=== PATIENT | female | born 1995 | race African-American/Black ===

== ENCOUNTER 2024-01-21 10:00 | Outpatient (RCR) | payer OTHER | END 2024-01-28 | LOC: PT 10:00 | PROVIDERS: ATTEND Orthopaedic Surgery | DX: M25.562 Pain in left knee (principal); M25.662 Stiffness of left knee, not elsewhere classified; M62.81 Muscle weakness (generalized); M26.89 Other dentofacial anomalies | CPT/HCPCS: 97010; 97110 ×5; 97161; G0283 ×3 ==

== ENCOUNTER 2024-03-02 08:27 | Outpatient (RCR) | payer OTHER | END 2024-03-29 | LOC: PT 08:27 | PROVIDERS: ATTEND Orthopaedic Surgery | DX: Z47.89 Encounter for other orthopedic aftercare (principal); M25.562 Pain in left knee; M25.662 Stiffness of left knee, not elsewhere classified; M62.81 Muscle weakness (generalized) ==

== ENCOUNTER 2024-04-01 09:00 | Outpatient (RCR) | payer OTHER | END 2024-04-29 | LOC: PT 09:00 | PROVIDERS: ATTEND Orthopaedic Surgery | DX: M25.562 Pain in left knee (principal); M25.662 Stiffness of left knee, not elsewhere classified; M62.81 Muscle weakness (generalized); M26.89 Other dentofacial anomalies ==